=== PATIENT | male | born 1945 | race Caucasian/White ===

== ENCOUNTER 2017-07-06 05:20 | Day surgery (SDC) | payer MEDICARE, BC ==
[2017-07-05 12:29] LABS: BASOPHILS 0.2 % (0-2); EOSINOPHILS 2.1 % (0-7); HEMATOCRIT 47.8 % (42.0-54.0); IMMATURE GRANULOCYTES 0.2 % (0-5); LYMPHOCYTES 24.9 % (15-50); MCH 30.2 pg (26.0-34.0); MCHC 33.5 g/dL (31.0-37.0); MCV 90.4 fL (80.0-100.0); MEAN PLATELET VOLUME 9.6 fL (7.4-10.4); NEUTROPHILS 60.6 % (40-80); PLATELET COUNT 202 10x3/uL (130-400); RBC 5.29 10x6/uL (4.20-6.10); RDW 13.2 % (11.5-14.5); WBC 4.8 10x3/uL (4.8-10.8)
[2017-07-05 12:48] LABS: ANION GAP 8.5 mmol/L (8-16); CALCIUM 8.9 mg/dL (8.5-10.1); CARBON DIOXIDE 29.9 mmol/L (21.0-32.0); CREATININE - SERUM 1.2 mg/dL (0.6-1.3); POTASSIUM - SERUM 4.4 mmol/L (3.5-5.1)
[2017-07-05 12:49] LABS: INR 0.95 (0.85-1.17); PROTIME 12.3 SECONDS (11.6-15.0)
[~2017-07-06] VITALS: Ht 175.3 cm; Wt 89.4 kg
[~2017-07-06 05:20] MED LIST: BIOTIN5 MG PO; FLOMAX0.4 MG PO; PROSCAR5 MG PO; VITAMIN B COMPL1 TAB PO; ZIAC 5-6.25 MG1 TAB PO; ZOCOR20 MG PO
[2017-07-06 06:15] VITALS: BP 129/54; Ht 175.3 cm; Wt 89.4 kg
[2017-07-06] MEDS ORDERED: PERCOCET 7.5/321 TAB PO (09:58)
--- NOTE | 2017-07-06 11:35 | NUR ---
IV DC WITH CATHER TIP INTACT
--- NOTE | 2017-07-06 15:39 | OP ---
PATIENT NAME: MARICHUY FLAHERTY MEDICAL RECORD: [id number] :45 LOCATION:[facility] ADMISSION DATE: SURGEON: JUAN BARNHART DO DATE OF OPERATION: 07/06/2017 PROCEDURE PERFORMED: Right shoulder arthroscopy, subacromial decompression mini open rotator cuff repair and bicep tenodesis. PREOPERATIVE DIAGNOSIS: Right partial thickness rotator cuff tear with a SLAP tear and subacromial impingement. POSTOPERATIVE DIAGNOSIS: Right full thickness rotator cuff tear with a SLAP tear and subacromial impingement. INDICATIONS: Mr. Flaherty is a 71-year-old male who has had this rotator cuff tear for quite some time. He came and saw me in April with an MRI that showed it, but he was not ready to have surgery. He said finally he wanted to do in July and it was scheduled in for that procedure. SURGEON: Juan Barnhart DO COMPLICATIONS: None. ANESTHESIA: He did receive a block in the preoperative area by anesthesia. BLOOD LOSS: Minimal. DESCRIPTION OF PROCEDURE: The patient was, after the block, taken to the operative suite, laid in the left lateral decubitus position and intubated. Once this was done, the right arm was prepped and draped in sterile fashion and hung off of the arm hanging device with 15 pounds of weight. After this was done, a timeout was performed. Everyone was in agreement to correct side, side, and patient and procedure commenced with entering into the shoulder joint with an 18-gauge needle from the posterior portal and injecting 60 mL of fluid. Once this was done, the portal was then established with an 11-blade scalpel and trocar was entered into the shoulder joint itself. Once the shoulder joint was entered, the anterior portal was established, first one was too high and then we established a second portal anteriorly in the correct position and the bicep tenodesis was done at that point with a burner. The joint itself was inspected and not seem to have much arthritis; however, we did see the SLAP tear and so we did a biceps tenodesis. The subscapularis tendon did have some fraying, but appeared to be intact for the most part upon further inspection. The supraspinatus and infraspinatus did have some fraying on the articular surface and then once this was noted it was cleaned up a little bit and a full thickness tear was seen in the supraspinatus and most of the fibers of the infraspinatus were detached in the anterior portion of it. We then entered the subacromial space, did a subacromial decompression and noted the bursal-sided tear of the supraspinatus tendon. This was performed through the lateral portal, which was established upon entering the subacromial space. The lateral portal was then extended for the mini open procedure and the bursa was removed over the tear. The deltoid fascia was incised and then the rotator cuff was encountered. The greater tuberosity was then shaved down to get a good bleeding surface of the cortical surface and 2 anchors were placed approximately a centimeter apart, first posteriorly and then anteriorly. The SpeedBridge device was used. We grabbed posteriorly and anteriorly and got a good bite of the tendon and the OPERATIVE REPORT [id number] MARICHUY FLAHERTY sutures were then cut. One limb anterior to one limb posterior were then taken anteriorly and one of each anterior and posterior limb were taken posteriorly and 2 lateral anchors were placed. This was seen to have good fixation and the extra sutures from the anchors were then pulled and cut. This was a very good strong repair. Then, the attention was then drawn to the biceps tenodesis, removed to the anterior portion of the humerus, right at where the pec tendon insertion on the humerus. A small incision was made and a blunt dissection was made down to the humerus itself. The biceps tendon was encountered just proximal to the bicipital groove, removed with a 90-degree hemostat and then grabbed with an Allis clamp. A whipstitch was then done 4 times through the bicep tendon itself and then once back and then the suture was cut from that and placed through the button. Then the soft tissue protector was placed on to the humerus itself just distal to the bicipital groove and the anterior cortex was drilled just a single cortex. The button was then placed through this hole and the biceps tendon was cinched down on the button and then 1 pass of the free needle with the excess suture was done through the bicep tendon itself and tied down. The excess suture and the biceps tendon were then cut. The wounds were all very well irrigated. The portal sites were closed with a simple inverted interrupted suture of 4-0 Monocryl. The open rotator cuff repair was closed with #1 Vicryl in a [id number]-cv-cgasu fashion and then 2-0 Vicryl inverted interrupted on the skin and then horizontal mattress of the 4-0 Monocryl. The biceps tenodesis site was irrigated as well and closed with 2-0 Vicryl in inverted interrupted fashion and the skin was closed in a running stitch with the 4-0 Monocryl subcutaneously. Dermabond was placed over each incision sites and then Adaptic, 4 x 4s, ABD were placed over the shoulder. The patient was placed into a sling with a pillow and taken to recovery in stable condition. BLOOD LOSS: Minimal. TRANSINT:[id number] Voice Confirmation ID: [id number] DOCUMENT ID: [id number] JUAN BARNHART DO at 1539 CC: [id number] DICTATION DATE: 07/06/17 1011 [employer]GER: 07/06/17 1110 [facility] 07/06/17 [facility] [address] [place] [address]
== END 2017-07-06 11:30 | disposition home or self-care (01) ==
LOC: D.OPS 05:20 → D.PAN 07:30 → D.OPS 11:30
PROVIDERS: Anesthesiology
DX: M75.121 Complete rotator cuff tear or rupture of right shoulder, not specified as traumatic (principal); I10 Essential (primary) hypertension; Z01.812 Encounter for preprocedural laboratory examination

== ENCOUNTER → 2018-08-12 13:23 | Outpatient (CLI) | payer MEDICARE, BC ==
[2017-07-06 06:15] VITALS: BMI 29.1
[~2018-08-12 13:23] MED LIST changes: +PERCOCET 7.5/321 TAB PO
== END | disposition home or self-care (01) ==
LOC: D.US 13:00
DX: R60.0 Localized edema (principal)